=== PATIENT | female | born 1945 | race Caucasian/White ===

== ENCOUNTER 2016-06-13 14:19 | Inpatient (IN) | payer MEDICARE ==
[~2016-06-13] VITALS: Ht 172.7 cm; Wt 76.8 kg
[2016-06-16] MEDS ORDERED: MOBI15TA PO (09:08)
[2016-06-16] MEDS ORDERED: CALC1TAB87 PO (09:08)
[2016-07-02] MEDS ORDERED: ceFAZolin 2 GM PREMIX 50 ML IV SCH (05:45)
[2016-07-02] MEDS: TRANEXAMIC ACID INJ 710 MG in SODIUM CHLORIDE 0.9% INJ 100 ML IV SCH ×2 (05:45→07:18)
[2016-07-02] MEDS: EXPAREL PERI-ARTICULAR INJECTION (TOTAL VOL. 60 ML) P-ARTICULR SCH ×4 (05:45→07:39)
[2016-07-02] MEDS ORDERED: LACTATED RINGER'S 1000 ML IV SCH (05:45)
[2016-07-02] MEDS ORDERED: SODIUM CHLORID 0.9% 500 ML IV SCH (05:45)
[2016-07-02] MEDS ORDERED: INSULIN HUMAN REGULAR 1,000 UNITS/10 ML VIAL SQ PRN (05:45)
[2016-07-02] MEDS ORDERED: VANCOMYCIN 1000 MG/NS 250 ML (for <70 kg) IV SCH ×2 (05:45)
[2016-07-02] MEDS: POVIDONE IODINE 7.5% SCRUB 118 ML BOTTLE TOP SCH (05:45)
[2016-07-02] MEDS ORDERED: DEXAMETHASONE SOD PHOS 20 MG/5 ML VIAL IV PRN (05:45)
[2016-07-02] MEDS ORDERED: METOPROLOL TARTRATE 25 MG TAB PO PRN (05:45)
[2016-07-02 05:46] VITALS: BP 143/69; PULSE 80; RESP 20; TEMP 97.5; O2SAT 100
[2016-07-02] MEDS ORDERED: GENTAMICIN SULFATE 80 MG/2 ML VIAL ONE (06:00)
[2016-07-02] MEDS ORDERED: MIDAZOLAM HCL 2 MG/2 ML VIAL ONE (06:22)
[2016-07-02] MEDS ORDERED: ACETAMINOPHEN 1000 MG/100 ML VIAL IV ONE (06:22)
[2016-07-02] MEDS ORDERED: FAMOTIDINE 20 MG/2 ML VIAL ONE (06:22)
[2016-07-02] MEDS ORDERED: fentaNYL CITRATE 250 MCG/5 ML AMP ONE (06:23)
[2016-07-02] MEDS ORDERED: ceFAZolin INJ 1,000 MG VIAL ONE (06:32)
--- NOTE | 2016-07-02 06:55 | HHI.FF ---
Face to Face Verification Diagnosis: (1) Osteoarthritis of right hip (2) Status post total hip replacement, right Physical Therapy Gait training, Transfer training, bed to chair Hip: Total hip Right LE Weight Bearing: WB as tolerated Right LE Range of Motion: Active ROM Nursing Nursing: Wu teaching, Dressing changes Dressing Changes: Daily dressing change I have seen patient Enoc Gallegos on 07/02/16. My clinical findings support the need for the requested home health care services because: Limited ability to care for self High risk of falls I certify that my clinical findings support that this patient is homebound because: Post-op weakness Unsteady gait/balance Theo Lawrence Jul 02, 2016 06:55
--- NOTE | 2016-07-02 06:55 | HHI.DCPOC ---
Discharge Care Plan Diagnosis: (1) Status post total hip replacement, right (2) Osteoarthritis of right hip Your Health Problems Are: Difficulty with ADL Goals to Promote Your Health * To prevent worsening of your condition and complications * To maintain your health at the optimal level Directions to Meet Your Goals Take your medications as prescribed Follow your dietary instruction Follow activity as directed Keep your appointments as scheduled Take your immunizations and boosters as scheduled If your symptoms worsen call your PCP, if no PCP go to Urgent Care Center or Emergency Room Smoking is Dangerous to Your Health. Avoid second hand smoke Call the 24-hour hour crisis hotline for domestic abuse at Theo Lawrence Jul 02, 2016 06:55
[2016-07-02] MEDS ORDERED: COMMODE 3-IN-11 MIS (06:57)
[2016-07-02] MEDS ORDERED: WALKER WHEELS/F1 MIS (06:57)
[2016-07-02] MEDS ORDERED: NALOXONE HCL 0.4 MG/ML AMP IV PRN (08:45)
[2016-07-02] MEDS: SODIUM CHLOR 0.9% 1000 ML INJ 1,000 ML IV SCH ×3 (08:45→21:05)
[2016-07-02] MEDS ORDERED: MAGNESIUM HYDROXIDE SUSP 30 ML CUP PO PRN (08:45)
[2016-07-02] MEDS ORDERED: diphenhydrAMINE HCL 50 MG/ML VIAL IV PRN (08:45)
[2016-07-02] MEDS ORDERED: SODIUM CHLORIDE 0.9% FLUSH 5 ML FLUSH IVF PRN (08:45)
[2016-07-02] MEDS ORDERED: Post-op Orders (for Pharmacy) MISC XX ONE (08:45)
[2016-07-02] MEDS ORDERED: BISACODYL 10 MG SUPP PR PRN (08:45)
[2016-07-02] MEDS ORDERED: ALUMINUM/MAGNESIUM/SIMETH 30 ML CUP PO PRN (08:45)
[2016-07-02] MEDS ORDERED: ACETAMINOPHEN/HYDROcodone 325 MG/5 MG TAB PO PRN (08:45)
[2016-07-02] MEDS ORDERED: MORPHINE SULFATE 4 MG/ML INJ IV PUSH PRN (08:45)
--- NOTE | 2016-07-02 08:52 | PD.OP ---
cc: Sharad Cody MD Operative Report Date of Surgery: Jul 02, 2016 Preoperative Diagnosis: Right hip severe osteoarthritis. Postoperative Diagnosis: Same Procedure: Right hip total hip arthroplasty Anesthesia: Gen. Surgeon: Sharad Cody Supervisor Pipe Joints(s): LEONEL Armendariz The surgical procedure was assisted by my Advanced Registered Nurse Practitioner. My EXPLOSIVE SPECIALIST presence was necessary throughout this case for the manipulation and positioning of the surgical extremity. My EXPLOSIVE SPECIALIST was assisting me throughout the duration of this procedure. The skill set of an Advance Registered Nurse Practitioner was medically necessary to complete this procedure. During the surgical case, the surgical rn was working at the back table and the Advance Registered Nurse Practitioner was directly assisting me. Operation and Findings: IMPLANT DESCRIPTION: 1. [place] Gription Cup, acetabular size 52. 2. [place] AltrX polyethylene, neutral. 4. [place] femoral stem size 11, + collar, standard offset. 5. Femoral head/neck metal, 36, +5. ESTIMATED BLOOD LOSS: 200 cc. JUSTIFICATION FOR PROCEDURE: The patient has end-stage osteoarthritis to the hip. There is an attached conservative measures pathway form in the chart that describes the nonoperative measures that were undertaken prior to consideration of surgical management. The patient understood the risks and benefits of surgical management. See my office notes for further details. PROCEDURE: The patient was brought back to the operative theatre. Adequate anesthesia was obtained. The patient received intravenous and vancomycin and Ancef. Note that the patient was given a test dose of Ancef prior to giving the full dose. The patient was carefully placed on the operative table. The lower extremity was prepped and draped in the usual sterile fashion. Fluoroscopic images were obtained. We made a standard anterior incision over the hip. We dissected through the TFL fascia, exposing the anterior capsule. Arthrotomy was performed in a T-shaped fashion. The capsule was tagged with a #2 FiberWire. End-stage arthritis was identified. Osteotomy was performed through the femoral neck exposing the acetabulum. Remnants of the labrum were resected and osteophytes were removed. We sequentially reamed the acetabulum. We trialed the hip and placed the final cup into position. This was done under fluoroscopic guidance to obtain the appropriate inclination and anteversion. A manhole cover was placed into the acetabular component. We then placed the final polyethylene into position and confirmed that it was well seated. Capsular attachments on the calcar and the inner aspect of the greater trochanter were resected. On the proximal aspect of the femur we used a rongeur , box osteotome, canal finder, sequential broaches and lateralizing rasp. Being particularly gentle with the mallet ending of the broach given the history of a femoral neck fracture of the other hip. However, even with gentle broaching we developed a nondisplaced crack in the calcar. We placed a Synthes cable around the proximal calcar keeping this crack nondisplaced and well stabilized. This was tensioned appropriately. We calcar planed the proximal femur. Then thoroughly irrigated the wound. We trialed the hip with the appropriate size stem. We placed the final stem in to position and trialed again. We decided to use a stem with a collar since half of the collar was able to rest on the intact portion of the calcar. Once we placed the final stem into position we manually tested the stem and it had excellent fit within the proximal femur with no sign of instability of the stem. The hip was stable while it was externally rotated 70 degrees when the leg was lowered to the floor. The final head was applied, and final fluoroscopic images were obtained. The wound was thoroughly irrigated again. Interarticular injection of liposomal bupivacaine was given. The capsule was closed with #2 FiberWire and #1 Vicryl. The deep fascia was closed with a #2 Stratafix, followed by 2-0 Vicryl in the skin and jayden. Postop plan is to start with 50% weightbearing. DVT prophylaxis will be performed with SCDbrittany, IKE montaño, early mobilization, and Lovenox followed by aspirin. Sharad Cody MD Jul 02, 2016 08:52
[2016-07-02] MEDS ORDERED: ASPI325T PO (08:54)
[2016-07-02] MEDS ORDERED: ENOX40P SQ (08:54)
[2016-07-02] MEDS ORDERED: NORC5TAB PO (08:54)
[2016-07-02] MEDS ORDERED: DO NOT ADM ANY ANTICOAGULANT DRUGS XX PRN (09:05)
[2016-07-02] MEDS ORDERED: *morphine SULFATE 8 MG/ML PERIprocedure ONLY ONE ×2 (09:26→10:42)
[2016-07-02] MEDS ORDERED: SODIUM CHLORIDE 0.9% IV SCH (10:00)
[2016-07-02] MEDS ORDERED: TRANEXAMIC ACID IV SCH (10:00)
--- NOTE | 2016-07-02 10:31 | RADRPT ---
EXAM DATE/TIME: 07/02/2016 09:30 [facility] COMPARISON: HIP LEFT (AP&LAT 2/3VWS) WO AP PELVIS, August 09, 2015, 8:46. INDICATIONS : Post op right hip surgery. MEDICAL HISTORY : None. SURGICAL HISTORY : left hip surgery. ENCOUNTER: Initial ACUITY: 1 day PAIN SCORE: Non-responsive. LOCATION: Right hip and pelvis FINDINGS: Patient is immediately postop right bipolar hip arthroplasty. There is a cerclage wire the femoral co mponent. Alignment is within normal limits. No fracture or other acute complication demonstrated. 3 trochanteric nails are again seen on the left. The left femoral neck fracture has healed without ap parent sequela. CONCLUSION: Expected radiographic appearance of the right bipolar hip arthroplasty. No acute complication demonst rated. Orlin Munson MD on July 02, 2016 at 10:28 Board Certified Radiologist. This report was verified electronically.
--- NOTE | 2016-07-02 10:59 | PD.CONS ---
HPI Service [facility] Hospitalists Consult Requested By Primary Care Physician Dion Bean MD Diagnoses: History of Present Illness Pt is 70 yo admitted for right total hip arthroplasty for OA. She is seen in pacu and doing well. Pt is awake and alert. Her vitals are all stable and her respiratory status is very well. Discussed with RN and pt. She is doing well and no additional needs at this time. Review of Systems Other hip pain Past Family Social History Past Medical History OA right hip. open cholecystectomy hx left hip fx and ORIF. Reported Medications Calcium 600 with Vitamin D (Calcium Carbonate-Cholecalciferol) 600-400 mg-Unit Tab 1 Tab PO DAILY Mobic (Meloxicam) 15 Mg Tab 5 Mg PO DAILY Allergies: Coded Allergies: Penicillin (Verified Allergy, Mild, Itching, 07/02/16) Family History nc Social History no etoh/tob Physical Exam Vital Signs heent neg heart reg lung cta abd s/nt ext no edema Vital Signs Date Time Temp Pulse Resp B/P Pulse Ox O2 Delivery O2 Flow Rate FiO2 07/02/16 10:00 77 16 138/62 99 Nasal Cannula 2 07/02/16 09:45 83 16 140/45 99 Nasal Cannula 2 07/02/16 09:30 79 16 145/84 99 Nasal Cannula 2 07/02/16 09:15 80 16 144/84 98 Nasal Cannula 2 07/02/16 09:09 98.2 83 16 141/77 99 Nasal Cannula 2 07/02/16 05:46 97.5 80 20 143/69 100 Laboratory Laboratory Tests Test 07/02/16 05:45 Blood Type B POSITIVE Antibody Screen NEGATIVE Assessment and Plan Problem List: (1) Status post total hip replacement, right Status: Acute Plan: Pt s/p right total hip arthroplasty 07/02 medically stable. pain control IS dc ibrahim PT dvt prophylaxis Dion Churchill MD Jul 02, 2016 10:58
[2016-07-02] MEDS ORDERED: PROPOFOL 200 MG/20 ML AMP IV ONE (12:00)
[2016-07-02] MEDS ORDERED: ePHEDrine/NS 25 MG/5 ML SYR IV ONE (12:00)
[2016-07-02] MEDS ORDERED: PHENYLEPH/NS 1000 MCG/10 ML SYR IV ONE (12:00)
[2016-07-02] MEDS ORDERED: ONDANSETRON HCL 4 MG/2 ML VIAL IV PUSH ONE (12:00)
[2016-07-02] MEDS ORDERED: LACTATED RINGER'S 1000 ML INJ 2,000 ML IV ONE (12:00)
--- NOTE | 2016-07-02 14:10 | RADRPT ---
EXAM DATE/TIME: 07/02/2016 07:23 [facility] COMPARISON: No previous studies available for comparison. INDICATIONS : Right total hip placement. MEDICAL HISTORY : None. SURGICAL HISTORY : None. ENCOUNTER: Initial ACUITY: 1 day PAIN SCORE: Non-responsive. LOCATION: Right hIP. FINDINGS: Examination of the hip demonstrates total hip arthroplasty in satisfactory position. The alignment is anatomic. CONCLUSION: Post surgical changes as above. Baldemar Bentley MD on July 02, 2016 at 14:09 Board Certified Radiologist. This report was verified electronically.
[2016-07-02] MEDS: ONDANSETRON HCL 4 MG/2 ML VIAL IVP PRN (16:31)
[2016-07-02 17:37] VITALS: BP 106/49; PULSE 77; RESP 16; TEMP 96; O2SAT 97
[2016-07-02 20:16] VITALS: BP 97/50; PULSE 76; RESP 20; TEMP 96.2; O2SAT 100
[2016-07-02 20:38] VITALS: O2SAT 96
[2016-07-02] MEDS ORDERED: ZOLPIDEM TARTRATE 5 MG TAB PO PRN (21:00)
[2016-07-02] MEDS: SODIUM CHLORIDE 0.9% FLUSH 5 ML FLUSH IVF SCH (21:04)
[2016-07-03] VITALS (7 sets, daily range): BP systolic 101–122; BP diastolic 49–68; PULSE 70–78; RESP 16–21; TEMP 95.9–98.1; O2SAT 95–100
[2016-07-03] MEDS: POVIDONE IODINE 7.5% SCRUB 118 ML BOTTLE TOP SCH (05:45)
[2016-07-03 07:15] LABS: HEMATOCRIT 31.6 % (35.0-46.0); MEAN CORPUSCULAR HEMOGLOBIN 29.6 PG (27.0-34.0); MEAN CORPUSCULAR HGB CONC 33.3 % (32.0-36.0); PLATELET COUNT 153 TH/MM3 (150-450); RED BLOOD COUNT 3.55 MIL/MM3 (4.00-5.30); WHITE BLOOD COUNT 15.9 TH/MM3 (4.0-11.0)
[2016-07-03] MEDS ORDERED: DEXAMETHASONE SOD PHOS 20 MG/5 ML VIAL IV ONE (07:45)
[2016-07-03 07:50] LABS: REVIEW FLAG AUTO DIFF
[2016-07-03] MEDS: ENOXAPARIN SODIUM 40 MG/0.4 ML SYRINGE SQ SCH (08:48)
[2016-07-03] MEDS: SODIUM CHLORIDE 0.9% FLUSH 5 ML FLUSH IVF SCH ×2 (08:49→20:20)
[2016-07-03] MEDS: ONDANSETRON HCL 4 MG/2 ML VIAL IVP PRN (09:05)
[2016-07-03] MEDS: ACETAMINOPHEN/HYDROcodone 325 MG/5 MG TAB PO PRN ×2 (09:05→13:50)
--- NOTE | 2016-07-03 12:44 | PD.ORT.PN ---
Subjective Post Op Day #: 1 Subjective Remarks The patient is OOB in chair with mild pain to the right hip. Family at bedside. Patient requesting an additional night in the hospital before being discharged. Objective Vitals Vital Signs Date Time Temp Pulse Resp B/P Pulse Ox O2 Delivery O2 Flow Rate FiO2 07/03/16 10:03 98 21 07/03/16 08:12 95.9 74 18 110/54 100 07/03/16 04:16 97.5 75 21 101/49 97 07/03/16 00:20 97.9 78 20 106/54 98 07/02/16 20:38 96 Nasal Cannula 2.00 07/02/16 20:16 96.2 76 20 97/50 100 07/02/16 19:15 Nasal Cannula 2.00 07/02/16 17:37 96.0 77 16 106/49 97 07/02/16 17:06 Nasal Cannula 2.00 07/02/16 15:00 18 07/02/16 15:00 98.7 68 16 120/60 99 Room Air I/O 07/02/16 07/02/16 07/02/16 07/03/16 07/03/16 07/03/16 07:00 15:00 23:00 07:00 15:00 23:00 Intake Total 2370 ml 1938 ml 1038 ml Output Total 1100 ml 775 ml 1125 ml Balance 1270 ml 1163 ml -87 ml Intake Oral 360 ml 960 ml 360 ml IV Total 310 ml 978 ml 678 ml Other 1700 ml Output Urine Total 275 ml 775 ml 1125 ml Estimated Blood Loss 600 ml Other 225 ml # Bowel Movements 0 0 Result Diagram: 07/03/16 0502 Procedures Right WAYNE Objective Remarks The patient's dressing was changed with scant serosanguineous drainage. Incision is well approximated with surgical clips intact. No redness or s/s of infection. EHL/TA/G intact. 2+ pedal pulse. Calf is soft and nontender. Mild swelling. + SILT. Assessment & Plan Ortho Post Op Day #: 1 Problem List: Assessment and Plan POD #1: Right WAYNE 1. 50% WB on RLE 2. Lovenox for DVT prophylaxis 3. Ice to the right hip PRN 4. Anticipatory discharge home with home health on Thursday. Theo Lawrence Jul 03, 2016 12:44
[2016-07-03] MEDS: SODIUM CHLOR 0.9% 1000 ML INJ 1,000 ML IV SCH (13:26)
[2016-07-03] MEDS: DOCUSATE SODIUM 100 MG CAP PO SCH (20:20)
[2016-07-03] MEDS: MULTIVITAMINS/MINERALS THERAPEUTIC TAB PO SCH (20:20)
[2016-07-04 00:12] VITALS: BP 115/61; PULSE 74; RESP 19; TEMP 97.9; O2SAT 96
[2016-07-04] MEDS: SODIUM CHLOR 0.9% 1000 ML INJ 1,000 ML IV SCH ×2 (00:45→08:40)
[2016-07-04] MEDS: POVIDONE IODINE 7.5% SCRUB 118 ML BOTTLE TOP SCH (05:45)
[2016-07-04 08:00] VITALS: BP 111/61; PULSE 82; RESP 19; TEMP 97; O2SAT 100
[2016-07-04] MEDS: DOCUSATE SODIUM 100 MG CAP PO SCH (08:39)
[2016-07-04] MEDS: MULTIVITAMINS/MINERALS THERAPEUTIC TAB PO SCH (08:39)
[2016-07-04] MEDS: ACETAMINOPHEN/HYDROcodone 325 MG/5 MG TAB PO PRN ×2 (08:40→11:35)
[2016-07-04] MEDS: SODIUM CHLORIDE 0.9% FLUSH 5 ML FLUSH IVF SCH (08:40)
[2016-07-04] MEDS: ENOXAPARIN SODIUM 40 MG/0.4 ML SYRINGE SQ SCH (08:40)
[2016-07-04 09:54] LABS: HEMATOCRIT 34.2 % (35.0-46.0); MEAN CELL VOLUME 89.3 FL (80.0-100.0); MEAN CORPUSCULAR HEMOGLOBIN 30.3 PG (27.0-34.0); MEAN CORPUSCULAR HGB CONC 33.9 % (32.0-36.0); PLATELET COUNT 201 TH/MM3 (150-450); RED BLOOD COUNT 3.84 MIL/MM3 (4.00-5.30); RED CELL DISTRIBUTION WIDTH 13.3 % (11.6-17.2); REVIEW FLAG FINAL; WHITE BLOOD COUNT 12.8 TH/MM3 (4.0-11.0)
[2016-07-04 12:00] VITALS: BP 119/63; PULSE 67; RESP 17; TEMP 96.2; O2SAT 100
--- NOTE | 2016-07-06 21:25 | HHI.DS ---
Discharge Summary Admission Date Jul 02, 2016 at 05:15 Discharge Date: Jul 04, 2016 Admitting Diagnosis Right hip OA Status post total hip replacement, right Diagnosis: (1) Osteoarthritis of right hip Diagnosis: Principal (2) Status post total hip replacement, right Diagnosis: Principal Procedures Right WAYNE Brief History This is a 70 year old female patient with severe OA of the right hip CBC/BMP: 07/04/16 0902 Significant Findings Laboratory Tests Test 07/04/16 09:02 White Blood Count 12.8 TH/MM3 (4.0-11.0) Red Blood Count 3.84 MIL/MM3 (4.00-5.30) Hematocrit 34.2 % (35.0-46.0) PE at Discharge The patient's dressing was changed with scant serosanguineous drainage. Incision is well approximated with surgical clips intact. No redness or s/s of infection. EHL/TA/G intact. 2+ pedal pulse. Calf is soft and nontender. Mild swelling. + SILT. Hospital Course The patient was admitted to the hospital for severe OA of the right hip to have a right WAYNE. The patient's surgery went well with no complications. The patient is 50% WB on the right LE. The patient is on a regular diet. The patient is on blood thinners for DVT prophylaxis. The patient was discharged home with home health and will f/u with Dr. oCdy in 1-2 weeks. Pt Condition on Discharge: Stable Discharge Disposition: Disch w/ Home Health Serv Discharge Instructions Diet Instructions: As Tolerated, No Restrictions Activities You Can Perform: Weight Bearing as Gennaro Activities to Avoid: Strenuous Activity Follow up Referrals: Orthopedics with Sharad Cody MD New Medications: Aspirin (Aspirin) 325 Mg Tab 325 MG PO DAILY Start Aspirin after Lovenox is completed. Prevent Blood Clot # 30 Ref 0 TAB Commode 3-in-1 (Commode 3-in-1) 1 Mis Mis 1 EA .ROUTE DIRECTED #1 Ref 0 EA Enoxaparin Inj (Lovenox Inj) 40 Mg/0.4 Ml Syr 40 MG SQ DAILY Start Aspirin after Lovenox is completed. Blood Clot Prevention # 10 Ref 0 SYRINGE Hydrocodone-Acetaminophen ([place]) 5-325 mg Tab 1-2 TAB PO Q4H PRN PAIN #60 Ref 0 TAB Walker with Front Wheels (Walker with Front Wheels) 1 Mis Mis 1 EA .ROUTE DIRECTED #1 Ref 0 EA Continued Medications: Calcium Carbonate-Cholecalciferol (Calcium 600 with Vitamin D) 600-400 mg-Unit Tab 1 TAB PO DAILY Calcium Supplement Ref 0 TAB Discontinued Medications: Meloxicam (Mobic) 15 Mg Tab 5 MG PO DAILY Arthritis pain Ref 0 TAB Theo Lawrence Jul 06, 2016 21:25
== END 2016-07-04 14:59 | disposition home health service (06) | DRG 470 ==
LOC: HSDI 07-02 05:15 → N06A 07-02 15:23
PROVIDERS: ADMIT Orthopaedic Surgery; ATTEND Orthopaedic Surgery
PROC: 0SR902Z Replacement of Right Hip Joint with Metal on Polyethylene Synthetic Substitute, Open Approach (ICD-10-PCS; principal; 2016-07-02 06:46)
DX: M16.11 Unilateral primary osteoarthritis, right hip (principal); G62.9 Polyneuropathy, unspecified; Z87.891 Personal history of nicotine dependence; Z88.0 Allergy status to penicillin
CPT/HCPCS: 73502; 76000; 85027; 86850; 86900; 86901; 94150; C1713; C1776; C9290; J0131; J0690; J1100; J1580; J1650; J2250; J2270; J2370; J2405; J3010; J3370; J7030; J7050; J7120

== ENCOUNTER → 2016-06-16 | Outpatient (CLI) | payer MEDICARE ==
[~2016-06-16] MED LIST: ASPI325T PO; CALC1TAB87 PO; COMMODE 3-IN-11 MIS; ENOX40P SQ; MOBI15TA PO; NORC5TAB PO; NORC7.5T PO; RIVA10 PO; WALKER STANDARD; WALKER WHEELS/F1 MIS
[2016-06-16 10:26] LABS: AUTOMATED NEUTROPHIL # 4.2 TH/MM3 (1.8-7.7); BASOPHIL % 0.6 % (0.0-2.0); EOSINOPHIL # 0.3 TH/MM3 (0-0.4); EOSINOPHIL % 4.2 % (0.0-4.0); HEMATOCRIT 42.3 % (35.0-46.0); HEMO FLAGS DIFF FINAL; LYMPHOCYTE # 1.6 TH/MM3 (1.0-4.8); MEAN CELL VOLUME 89.9 FL (80.0-100.0); MEAN CORPUSCULAR HEMOGLOBIN 29.8 PG (27.0-34.0); MEAN CORPUSCULAR HGB CONC 33.2 % (32.0-36.0); MONO % 9.3 % (0.0-8.0); NEUT % 61.9 % (16.0-70.0); PLATELET COUNT 211 TH/MM3 (150-450); RED CELL DISTRIBUTION WIDTH 13.2 % (11.6-17.2); WHITE BLOOD COUNT 6.8 TH/MM3 (4.0-11.0)
[2016-06-16 10:33] LABS: BLOOD, URINE NEG (NEG); COMMENT (UR) CULT NOT INDICATED; CULTURE IF INDICATED CULT NOT INDICATED; GLUCOSE,URINE NEG (NEG); KETONE, URINE NEG (NEG); NITRITE,URINE NEG (NEG); PH, URINE 6.5 (5.0-8.5); SQUAMOUS EPITHELIAL CELL URINE <1 /hpf (0-5); URINE COLOR YELLOW (YELLW/STRAW)
[2016-06-16 10:34] LABS: APTT (PATIENT) 27.5 SEC (24.3-30.1); PROTHROMBIN TIME - PATIENT 10.9 SEC (9.8-11.6)
[2016-06-16 10:42] LABS: WESTERGREN SEDIMENTATION RATE 6 mm/hr (0-30)
[2016-06-16 11:02] LABS: ALKALINE PHOSPHATASE 87 U/L (45-117); ALT (GPT) 39 U/L (10-53); ANION GAP 7 MEQ/L (5-15); AST (GOT) 27 U/L (15-37); BICARBONATE 29.9 MEQ/L (21.0-32.0); BLOOD UREA NITROGEN 19 MG/DL (7-18); CHLORIDE 102 MEQ/L (98-107); GLOMERULAR FILTRATION RATE 74 ML/MIN (>89); GLUCOSE,FASTING 101 MG/DL (74-99); POTASSIUM 4.5 MEQ/L (3.5-5.1); SODIUM (NA) 139 MEQ/L (136-145); TOTAL BILIRUBIN ADULT 0.5 MG/DL (0.2-1.0)
--- NOTE | 2016-06-16 11:38 | RADRPT ---
EXAM DATE/TIME: 06/16/2016 11:15 [facility] COMPARISON: CHEST SINGLE AP, August 08, 2015, 19:03. INDICATIONS : Evaluate for pneumonia, pneumothorax, or communicable disease. MEDICAL HISTORY : None. SURGICAL HISTORY : None. ENCOUNTER: Initial ACUITY: 1 day PAIN SCORE: 0/10 LOCATION: Bilateral chest FINDINGS: PA and lateral views of the chest demonstrate the lungs to be symmetrically aerated without evidence of mass, infiltrate or effusion. The cardiomediastinal contours are unremarkable. Osseous structure s are intact. CONCLUSION: Normal examination. No significant change has occurred. Michael Guerrero MD on June 16, 2016 at 11:36 Board Certified Radiologist. This report was verified electronically.
--- NOTE | 2016-06-16 14:15 | EKG ---
Date Performed: 06/16/2016 Time Performed: 09:33:03 PTAGE: 70 years EKG: Sinus rhythm POSSIBLE LEFT ATRIAL ENLARGEMENT BORDERLINE ECG NO PREVIOUS TRACING DOCTOR: Kristopher Lyons Interpretating Date/Time 06/16/2016 14:12:58
== END ==
LOC: CPRE 08:51
PROVIDERS: ATTEND Orthopaedic Surgery
DX: Z01.810 Encounter for preprocedural cardiovascular examination (principal); Z01.811 Encounter for preprocedural respiratory examination; Z01.812 Encounter for preprocedural laboratory examination; M25.50 Pain in unspecified joint; M16.11 Unilateral primary osteoarthritis, right hip; R94.31 Abnormal electrocardiogram [ECG] [EKG]; Z96.60 Presence of unspecified orthopedic joint implant
CPT/HCPCS: 36415; 71020; 80053; 81001; 85025; 85610; 85652; 85730; 93005